=== PATIENT | male | born 1960 | race Caucasian/White ===

== ENCOUNTER 2024-10-05 11:51 | Outpatient (CLI) | payer MEDICARE, SELFPAY ==
--- NOTE | ~2024-10-05 | PE_ITS ---
EXAMINATION: PET skull to mid thigh DATE: 10/05/2024 14:27 INDICATION: Multiple pulmonary nodules TECHNIQUE: Blood glucose level was 92 mg/dL. 10.628 mCi of 18-fluorodeoxyglucose (18-FDG) was adminis tered i.v. Low dose computed tomography (CT) images were acquired from the base of the brain to the p roximal thighs for attenuation correction and anatomic localization. Positron emission tomography (PE T) images were acquired in the same distribution beginning 61 minutes after injection. Images includi ng fused PET/CT images were reconstructed in axial, coronal, and sagittal planes. Automated exposure control technique was employed. The dose-length product was 486.61mGy-cm. COMPARISON: None FINDINGS: Head/neck: There is symmetric increased activity in the oral cavity, palatine tonsils, laryngeal muscles and ocu lar muscles without CT correlate, likely physiologic. No pathologically enlarged cervical lymphadenop athy or suspicious foci of increased FDG uptake in the visualized head or neck. Chest: Mild emphysema with biapical pleural-parenchymal scarring, right greater than left. FDG avid thick-wa lled cavitary lung disease in the right upper lobe with maximal SUV of 10.3 associated with the large st contiguous regions soft tissue density which measures 5.9 x 2.9 cm. There are several smaller scat tered bilateral pulmonary nodules without cavitation and with mild FDG uptake. To the more prominent include an 8 x 7 mm nodule at the inferior posterior segment of the right upper lobe measuring 8 x 7 mm with maximal SUV of 5.8 and at the apical posterior segment of the left upper lobe measuring 1.4 x 0.7 cm with maximal SUV of 3.3. No pleural effusion. Heart size is normal. No pericardial effusion. Thoracic aorta is normal in caliber. There is diffuse mild likely excreted salivary activity along th e normal esophagus. No pathologically enlarged or FDG avid thoracic lymphadenopathy. Abdomen/pelvis/proximal thighs: Physiologic renal accumulation and excretion of FDG activity in the kidneys, bladder and along portio ns of ureters. Normal degree and heterogenous pattern of increased uptake throughout the liver withou t radiologic correlate or dominant FDG avid lesion. The gallbladder, pancreas, spleen and bilateral a drenal glands are normal. Mild uptake scattered throughout the bowels without radiologic correlate, a lso likely physiologic. Small fat-containing left inguinal hernia. No other abnormal foci of increase d FDG uptake or pathologically enlarged lymphadenopathy in the abdomen, pelvis or proximal thighs. Musculoskeletal: Mild lumbar levocurvature with severe spondylosis. Mild increased uptake at the superolateral margin of the right acetabulum along the origin of the reflected head of the right rectus femoris muscle wit hout radiologic correlate and which is likely enthesopathic. No suspicious lytic, blastic or abnormal ly FDG avid bone lesions. IMPRESSION: 1. Increased FDG uptake associated with multiple scattered bilateral pulmonary nodules as well as ass ociated with a larger thick-walled cavitary lesion in the right upper lung zone which could be either malignant or infectious in etiology. Recommend correlation with any prior outside imaging to assess for interval stability versus growth. Depending on level of clinical suspicion could consider either continued 3 month follow-up low-dose noncontrast chest CT or percutaneous biopsy. Reviewed, dictated and finalized at location A. IMPRESSION: 1. Increased FDG uptake associated with multiple scattered bilateral pulmonary nodules as well as associated with a larger thick-walled cavitary lesion in the right upper lung zone which could be either malignant or infectious in etiolog y. Recommend correlation with any prior outside imaging to assess for interval stability versus growth. Depending on level of clinical suspicion could conside r either continued 3 month follow-up low-dose noncontrast chest CT or percutane ous biopsy.
--- OUTSIDE RECORDS SUMMARY | 2024-10-05 12:02 | XMS_ITS | Patient Health Record ---
Author Organization [facility] Address [address] [place] [address] Care Team Providers Care Public Health Nutritionist Name Role Phone Edy Ramirez Primary Care Provider Allergies No Known Allergies Results Component Value Reference Range Notes Low Dose CT: Lung Cancer Scr eening Reviewed date:09/17/2024 08:40:32 AM Interpretation: Performing Lab: Notes/Report: Ultrasound: Screening for ab dominal aortic aneurysm Reviewed date:09/17/2024 08:39:46 AM Interpretation: Performing Lab: Notes/Report: Rapid Plasma Reagin (RPR) Te st With Reflex to Quantitative RPR and Confirmatory Treponema pallidum Antibodies Reviewed date:08/16/2024 01:56:31 PM Interpretation: Performing Lab:[facility], [address] [facility], Phone - [phone], Director - [facility] Notes/Report: RPR Non Reactive Non Reactive QuantiFERON-TB Gold Plus ([id number]) Reviewed date:08/16/2024 01:56:22 PM Interpretation: Performing Lab:[facility], [address] [facility], Phone - [phone], Director - [facility] Notes/Report: QuantiFERON Incubation Incubation performed. QuantiFERON-TB Gold Plus Negative Negative No response to M tuberculosis antigens detected. Infection with M tuberculosis is unlikely, but high risk individuals should be considered for additional testing (ATS/IDSA/CDC Clinical Practice Guidelines, 2017). The reference range is an Antigen minus Nil result of <0.35 IU/mL. Chemiluminescence immunoassay methodology QuantiFERON Criteria QuantiFERON-TB Gold Plus is a qualitative indirect test for M tuberculosis infection (including disease) and is intended for use in conjunction with risk assessment, radiography, and other medical and diagnostic evaluations. The QuantiFERON-TB Gold Plus result is determined by subtracting the Nil value from either TB antigen (Ag) value. The Mitogen tube serves as a control for the test. QuantiFERON TB1 Ag Value 0.10 QuantiFERON TB2 Ag Value 0.09 QuantiFERON Nil Value 0.09 QuantiFERON Mitogen Value >10.00 Hepatitis C Virus Antibody w /Rflx to Quantitative Real-time PCR ([id number]) Reviewed date:08/16/2024 01:55:53 PM Interpretation: Performing Lab:[address], Phone - [phone], Director - [facility] Notes/Report: HCV Ab Non Reactive Non Reactive Interpretation: Not infected with HCV unless early or acute infection is suspected (which may be delayed in an immunocompromised individual), or other evidence exists to indicate HCV infection. TSH Rfx on Abnormal to Free T4 Reviewed date:08/16/2024 01:56:13 PM Interpretation: Performing Lab:[address], Phone - [phone], Director - [facility] Notes/Report: TSH 1.120 0.450-4.500 uIU/mL CMP 14 Comprehensive Metabol ic Panel* Reviewed date:08/16/2024 01:56:03 PM Interpretation: Performing Lab:[address], Phone - [phone], Director - [facility] Notes/Report: Glucose 99 70-99 mg/dL BUN 5 8-27 mg/dL Creatinine 0.69 0.76-1.27 mg/dL eGFR 105 >59 mL/min/1.73 BUN/Creatinine Ratio 7 10-24 Sodium 132 134-144 mmol/L Potassium 4.9 3.5-5.2 mmol/L Chloride 89 96-106 mmol/L Carbon Dioxide, Total 25 20-29 mmol/L Calcium 9.9 8.6-10.2 mg/dL Protein, Total 7.6 6.0-8.5 g/dL Albumin 4.4 3.9-4.9 g/dL Globulin, Total 3.2 1.5-4.5 g/dL Bilirubin, Total 0.4 0.0-1.2 mg/dL Alkaline Phosphatase 114 44-121 IU/L AST (SGOT) 29 0-40 IU/L ALT (SGPT) 13 0-44 IU/L Hepatitis B Surface Antigen (HBsAg Screen) Reviewed date:08/16/2024 01:55:44 PM Interpretation: Performing Lab:[facility], [address] [place] [address], Phone - [phone], [facility] Notes/Report: HBsAg Screen Negative Negative CBC With Differential/Platel et* Reviewed date:08/16/2024 01:55:36 PM Interpretation: Performing Lab:[facility], [address] [place] [address], Phone - [phone], [facility] Notes/Report: WBC 9.0 3.4-10.8 x10E3/uL RBC 5.69 4.14-5.80 x10E6/uL Hemoglobin 17.2 13.0-17.7 g/dL Hematocrit 51.3 37.5-51.0 % MCV 90 79-97 fL MCH 30.2 26.6-33.0 pg MCHC 33.5 31.5-35.7 g/dL RDW 13.8 11.6-15.4 % Platelets 292 150-450 x10E3/uL Neutrophils 59 Not Estab. % Lymphs 27 Not Estab. % Monocytes 11 Not Estab. % Eos 2 Not Estab. % Basos 1 Not Estab. % Neutrophils (Absolute) 5.2 1.4-7.0 x10E3/uL Lymphs (Absolute) 2.4 0.7-3.1 x10E3/uL Monocytes(Absolute) 1.0 0.1-0.9 x10E3/uL Eos (Absolute) 0.2 0.0-0.4 x10E3/uL Baso (Absolute) 0.1 0.0-0.2 x10E3/uL Immature Granulocytes 0 Not Estab. % Immature Grans (Abs) 0.0 0.0-0.1 x10E3/uL Vitamin B12 and Folate Reviewed date:08/16/2024 01:55:25 PM Interpretation: Performing Lab:[facility], [address] [facility], Phone - [phone], Director - [facility] Notes/Report: Vitamin B12 227 777-5860 pg/mL Folate (Folic Acid), Serum 3.6 >3.0 ng/mL A serum folate concentration of less than 3.1 ng/mL is considered to represent clinical deficiency. HIV Screen *HIV 1, 2 Ab, p24 Ag ([id number]) Reviewed date:08/16/2024 01:55:16 PM Interpretation: Performing Lab:[address], Phone - [phone], Director - [facility] Notes/Report: HIV Ab/p24 Ag Screen Non Reactive Non Reactive HIV-1/HIV-2 antibodies and HIV-1 p24 antigen were NOT detected. There is no laboratory evidence of HIV infection. HIV Negative 12 Panel Urine Drug Screen Reviewed date:08/12/2024 10:03:30 AM Interpretation: Performing Lab: Notes/Report: THC neg NAYLA neg MOP (OPI) neg AMP neg MET neg BAR neg BZO negg MDMA neg MTD neg OXY neg PCP neg BUP neg Occult Blood, Fecal, IA (182 801) Reviewed date:09/23/2024 04:34:18 PM Interpretation: Performing Lab:[address], Phone - [phone], Director - [facility] Notes/Report: Occult Blood, Fecal, IA Negative Negative QuantiFERON-TB Gold Plus (18 0187) Reviewed date:09/23/2024 04:34:08 PM Interpretation: Performing Lab:[address], Phone - [phone], Director - [facility] Notes/Report: QuantiFERON Incubation Incubation performed. QuantiFERON-TB Gold Plus Negative Negative No response to M tuberculosis antigens detected. Infection with M tuberculosis is unlikely, but high risk individuals should be considered for additional testing (ATS/IDSA/CDC Clinical Practice Guidelines, 2017). The reference range is an Antigen minus Nil result of <0.35 IU/mL. Chemiluminescence immunoassay methodology QuantiFERON Criteria QuantiFERON-TB Gold Plus is a qualitative indirect test for M tuberculosis infection (including disease) and is intended for use in conjunction with risk assessment, radiography, and other medical and diagnostic evaluations. The QuantiFERON-TB Gold Plus result is determined by subtracting the Nil value from either TB antigen (Ag) value. The Mitogen tube serves as a control for the test. QuantiFERON TB1 Ag Value 0.12 QuantiFERON TB2 Ag Value 0.18 QuantiFERON Nil Value 0.08 QuantiFERON Mitogen Value >10.00 Reason For Referral Reason fractured, infected tooth below gums in right lower jaw Diagnosis 1 Dental infection (K0 4.7) Referral Organization [facility] Referring Provider First Name Edy Referring Provider Last Name Ashley Referring Provider Speciality Internal M edicine Referred Provider Specialty Oral Surgery General Notes Denise Peguero J 0 08/13/2024 03:22:36 PM >Referral to Oral Surgery. Letter sent. Clinical Notes [facility], Oral & Maxillofacial Surgery, [address] [facility], Service Building, [address], [place] [address], , Referral Priority Urgent Medications Medication SIG (Take, Route, Frequency, Duration) Notes Start Date End Date Status Amoxicillin-Pot Clavulanate 875-125 MG 1 tablet Orally every 12 hrs for 7 days 09/02/2024 Active Umeclidinium-Vilanterol 62.5-25 MCG/ACT 1 puff Inhalation Once a day for 30 days 08/12/2024 Active Mirtazapine 15 MG 1 tablet at bedtime Orally Once a day for 30 day(s) 09/09/2024 Active Social History Tobacco Use: Social History Observation Description Date Details (start date - stop date) Current Smoker NA - NA Sex Assigned At : Social History Observation Description Sex Assigned At Male Tobacco Control (Standard) Question Answer Notes Tobacco use: Current smoker Additional Findings: Tobacco user Heavy cigarett e smoker (20-39 cigs/day) Problems Problem Type SNOMED Code ICD Code Onset Dates Problem Status W/U Status Risk Notes Problem Tobacco user (818670645) Nicotine dependence, unspecified, uncomplicated (F17.200) Active confirmed Problem Insomnia (593155420) Insomnia (G47.00) Active confirmed Problem COPD - Chronic obstructive pulmonary disease (84230627) COPD (chronic obstructive pulmonary disease) (J44.9) Active confirmed Problem Deficiency of macronutrients (disorder) (636361152) Protein-calorie malnutrition, unspecified severity (E46) Active confirmed Vital Signs Heart Rate 88 /min 09/09/2024 Respiratory Rate 16 /min 09/09/2024 Blood pressure diastolic 64 mm Hg 09/09/2024 Oximetry 93 % 09/09/2024 Height 70 in in 09/09/2024 Blood pressure systolic 110 mm Hg 09/09/2024 Weight 110.4 lbs lbs 09/09/2024 BMI 15.84 kg/m2 09/09/2024 Encounters Encounter Location Date Provider Diagnosis [address] [address] 09/09/2024 Edy Ramirez [address] [address] 08/12/2024 Edy Ramirez Dental infection K04 .7 ; COPD (chronic obstructive pulmonary disease) J44.9 ; Protein-calorie malnutrition, unspecified severity E46 ; BMI less than 19,adult Z68.1 ; Nutritional counseling Z71.3 ; Exposure to potential infection Z20.9 ; Fatigue R53.83 ; Opioid use F11.90 ; Colon cancer screening Z12.11 ; Screening for lung cancer Z12.2 ; Screening for AAA (abdominal aortic aneurysm) Z13.6 ; Elevated blood pressure (not hypertension) R03.0 and Nicotine dependence, unspecified, uncomplicated F17.[address] [address] 08/12/2024 Edy Ramirez Exposure to potentia l infection Z20.9 ; Colon cancer screening Z12.11 ; Fatigue R53.83 ; Dental infection K04.7 and Protein-calorie malnutrition, unspecified severity E46 [address] [address] 08/26/2024 Edy Ramirez COPD (chronic obstructive pulmonary disease) J44.9 ; Protein-calorie malnutrition, unspecified severity E46 ; Dental infection K04.7 and Colon cancer screening Z12.[address] [address] 09/09/2024 Edy Ramirez Pulmonary nodules/lesions, multiple R91.8 ; Dental infection K04.7 and Insomnia G47.00 [facility] [address] [place] [address] 09/14/2024 Edy Ramirez [facility] [address] [place] [address] 09/17/2024 Edy Ramirez [address] [place] [address] 09/17/2024 Edy Ramirez [facility] [address] [place] [address] 09/20/2024 Edy Ramirez [facility] [place] [address] 09/21/2024 Edy Ramirez [address] [facility] [place] [address] 10/01/2024 Edy Ramirez Assessments Encounter Date Diagnosis (ICD Code) Assessment Notes Treatment Notes Treatment Clinical Notes Section Notes 08/26/2024 COPD (chronic obstructive pulmonary disease) (ICD-10 - J44.9) 09/09/2024 Pulmonary nodules/lesions, multiple (ICD-10 - R91.8) 09/09/2024 Dental infection (ICD-10 - K04.7) 08/26/2024 Protein-calorie malnutrition, unspecified severity (ICD-10 - E46) 08/12/2024 COPD (chronic obstructive pulmonary disease) (ICD-10 - J44.9) 08/12/2024 Dental infection (ICD-10 - K04.7) 08/12/2024 Exposure to potential infection (ICD-10 - Z20.9) 08/12/2024 Colon cancer screening (ICD-10 - Z12.11) 08/12/2024 Protein-calorie malnutrition, unspecified severity (ICD-10 - E46) 09/09/2024 Insomnia (ICD-10 - G47.00) 08/26/2024 Dental infection (ICD-10 - K04.7) 08/26/2024 Colon cancer screening (ICD-10 - Z12.11) 08/12/2024 BMI less than 19,adult (ICD-10 - Z68.1) 08/12/2024 Fatigue (ICD-10 - R53.83) 08/12/2024 Dental infection (ICD-10 - K04.7) 08/12/2024 Nutritional counseling (ICD-10 - Z71.3) 08/12/2024 Protein-calorie malnutrition, unspecified severity (ICD-10 - E46) 08/12/2024 Exposure to potential infection (ICD-10 - Z20.9) 08/12/2024 Fatigue (ICD-10 - R53.83) 08/12/2024 Opioid use (ICD-10 - F11.90) HOME URINE FENTANYL TEST FAINTLY POSITIVE. 08/12/2024 Colon cancer screening (ICD-10 - Z12.11) 08/12/2024 Screening for lung cancer (ICD-10 - Z12.2) 08/12/2024 Screening for AAA (abdominal aortic aneurysm) (ICD-10 - Z13.6) 08/12/2024 Elevated blood pressure (not hypertension) (ICD-10 - R03.0) MONITOR ONCE PAIN IS RELIEVED 08/12/2024 Nicotine dependence, unspecified, uncomplicated (ICD-10 - F17.200) 08/12/2024 Other Learning About the Safe Use of Antibiotics material was discussed. Pt was educated on use of antibiotic medication including dosing, side effects, adverse effects and anticipated response. Pt was also educated on importance of completing full course of treatment as ordered. Patient voiced understanding of all. Learning About the Safe Use of Antibiotics material was discussed. Pt was educated on use of antibiotic medication including dosing, side effects, adverse effects and anticipated response. Pt was also educated on importance of completing full course of treatment as ordered. Patient voiced understanding of all. [place] ENTRIES 08/26/2024 Other Learning About the Safe Use of Antibiotics material was discussed. Pt was educated on use of antibiotic medication including dosing, side effects, adverse effects and anticipated response. Pt was also educated on importance of completing full course of treatment as ordered. Patient voiced understanding of all. 09/09/2024 Other Learning About the Safe Use of Antibiotics material was discussed. Pt was educated on use of antibiotic medication including dosing, side effects, adverse effects and anticipated response. Pt was also educated on importance of completing full course of treatment as ordered. Patient voiced understanding of all. Plan Of Treatment Future Test Test Name Order Date PET/CT Head to Mid-Thigh 09/09/2024 Next Appt Details Provider Name:Edy Ramirez , 10/19/2024 09:40:00 AM, [address] [facility] , [place], [address], Insurance Providers Payer Name Payer Address Payer Phone Subscriber Number Group Number Insured Name Patient Relationship to Insured Coverage Start Date Coverage End Date [facility] [address] [address] [place] [address] [id number] Callum Bah Self - patient is the insured 5
--- OUTSIDE RECORDS SUMMARY | 2024-10-05 12:02 | XMS_ITS | Clinical Summary ---
Author Organization [facility] [address] [facility] Address [address] [place] [address] Care Team Providers Care Community Arts Centre Manager Name Role Phone Nathan, Ira Neri NP Primary Care Provider [phone] Allergies No known active allergies Medications naproxen (NAPROSYN,ALEVE ) 500 mg tablet take 1 tablet by oral route 2 times every day with food 0 0 5 Active Additional Information Patient not taking.Reported on 02/08/2020 aclidinium (TUDORZA PRESSAIR) 400 mcg/actuation inhaler inhale 1 puff by inhalation route every day 0 Inhaler 0 5 Active Additional Information Patient not taking.Reported on 02/08/2020 albuterol HFA (VENTOLIN HFA) 90 mcg/actuation inhaler inhale 2 puff by inhalation route every 4 - 6 hours as needed 0 Inhaler 0 5 Active Additional Information Patient not taking.Reported on 02/08/2020 ciprofloxacin-d examethasone (CIPRODEX) otic suspension instill 4 drop by otic route 2 times every day for 7 days into affected ear(s) 0 0 5 Active Additional Information Patient not taking.Reported on 02/08/2020 Advair Diskus 250-50 mcg/dose diskus inhaler INL 1 PUFF PO BID 0 Active mirtazapine (REMERON) 45 mg tablet TK 1 T PO QD 0 Active latanoprost (XALATAN) 0.005 % ophthalmic solution Administer 1 drop into both eyes nightly 2.5 mL 11 0 Active Active Problems Problem Noted Date Diagnosed Date Corneal dystrophy 02/08/2020 Primary open angle glaucoma of both eyes 020 Pain in wrist 04/03/2015 Overview (08/30/2016): Wrist pain Chronic obstructive pulmonary disease 04/03/2015 Overview (08/30/2016): COPD Current smoker 04/03/2015 Overview (08/30/2016): Current smoker Medical History Medical History Date Comments Hx Other Medical Fractured left wrist 02-17-15.; Comments: [facility] 04/25/2015 - COPD (chronic obstructive pu lmonary disease) ([facility]) Glaucoma Social History Tobacco Use Types Packs/Day Years Used Date Smoking Tobacco: Every Day Smokeless Tobacco: Never Sex and Gender Information Value Date Recorded Sex Assigned at Not on file Legal Sex Male 10:49 AM ANESTHESIOLOGIST ASSISTANT Gender Identity Not on file Sexual Orientation Not on file Obstetrics History Last Filed Vital Signs Vital Sign Reading Time Taken Comments Blood Pressure 120/90 06/19/2015 1:58 PM ANESTHESIOLOGIST ASSISTANT Pulse 130 06/19/2015 1:58 PM ANESTHESIOLOGIST ASSISTANT Temperature - - Respiratory Rate - - Oxygen Saturation - - Inhaled Oxygen Concentration - - Weight 56.2 kg (124 lb) 06/19/2015 1:58 PM ANESTHESIOLOGIST ASSISTANT Height 180.3 cm (5' 11 ) 06/19/2015 1:58 PM ANESTHESIOLOGIST ASSISTANT Body Mass Index 17.29 06/19/2015 1:58 PM ANESTHESIOLOGIST ASSISTANT Plan of Treatment Not on file Insurance [employer]ARE [id number] [employer] HMO Care Teams Community Arts Centre Manager Relationship Specialty Start Date End Date Ira Evans NP [address] [place] [address] PCP - General Nurse Practitioner 12/23/19
--- OUTSIDE RECORDS SUMMARY | 2024-10-05 12:02 | XMS_ITS | Clinical Summary ---
Author Organization [facility] Address [address] [place] [address] Care Team Providers Care Operation Research Analyst Name Role Phone Antwon Bond MD Primary Care Provider [phone] Source Comments [facility],non-owned Affiliates and Associated Physician Practices is amultiple site organization consisting of ambulatory clinics and hospital sitesin [place], [place], [place] and [place]. This disclosure is being madepursuant to the Care Everywhere program and may not contain all information available regarding this patient. Last updated 18.[facility] Active Problems Problem Noted Date Diagnosed Date Chronic obstructive pulmonary disease 12/09/2014 Family History Medical History Relation Name Comments CVA Father Status: d None Known Mother Status: d Relation Name Status Comments Father Mother Social History Tobacco Use Types Packs/Day Years Used Date Smoking Tobacco: Every Day Cigarettes Alcohol Use Standard Drinks/Week Comments Yes 6.7 (1 standard drink = 0.6 oz p ure alcohol) Sex and Gender Information Value Date Recorded Sex Assigned at Not on file Legal Sex Male 6:08 PM TILESETTER Gender Identity Not on file Sexual Orientation Not on file Last Filed Vital Signs Vital Sign Reading Time Taken Comments Blood Pressure 112/87 12/09/2014 1:15 PM CDT Pulse 80 12/09/2014 1:15 PM CDT Temperature 36.6 C (97.9 F) 12/09/2014 12:49 PM CDT Respiratory Rate 16 12/09/2014 1:15 PM CDT Oxygen Saturation 96% 12/09/2014 1:15 PM CDT Inhaled Oxygen Concentration - - Weight 58.1 kg (128 lb) 12/09/2014 11:04 AM CDT Height 176.5 cm (5' 9.5 ) 12/09/2014 11:04 AM CD T Body Mass Index 18.63 12/09/2014 11:04 AM CDT Plan of Treatment Health Maintenance Due Date Last Done Comments COLOGUARD (AGES 45-75) - COL ON CA SCREENING 1962 COLON MONITORING 1962 COLONOSCOPY - COLON CA SCREENING 1962 CT COLONOGRAPHY - COLON CA SCREENING 1962 Colorectal Cancer Screening 1962 FIT - COLON CA SCREENING 1962 FLEX SIG - COLON CA SCREENING 1962 LIPID TESTING 1962 HIV SCREENING 1977 HEPATITIS C SCREENING 09/24/1980 DTAP/TDAP/TD VACCINES (1 - Tdap) 1981 PNEUMOCOCCAL VACCINE 50+ (1 of 1 - PCV) 2012 ZOSTER VACCINE (1 of 2) 2012 COVID-19 VACCINE ( - 2023-2 5 season) 2024 DEPRESSION SCREENING 05/26/2024 INFLUENZA VACCINE (Season Ended) 2025 Respiratory Syncytial Virus (RSV) Vaccine Pt: or over 60 yrs (1 - 1-dose 75+ series) 2037 HEPATITIS B VACCINE Aged Out No longe r eligible based on patient's age to complete this topic HIB VACCINE Aged Out No longer eligi ble based on patient's age to complete this topic HPV VACCINE Aged Out No longer eligi ble based on patient's age to complete this topic MENINGOCOCCAL (Group B) VACC INE SHARED DECISION-MAKING Aged Out No longer eligibl e based on patient's age to complete this topic MENINGOCOCCAL GROUPS A/C/Y/W VACCINE Aged Out No longer eligible b ased on patient's age to complete this topic Insurance MEDICARE MEDICAID - OUT OF STATE Care Teams Operation Research Analyst Relationship Specialty Start Date End Date Antwon Bond MD [address] [place] [address] PCP - General 09/15/14
--- OUTSIDE RECORDS SUMMARY | 2024-10-05 12:02 | XMS_ITS | Patient Health Record ---
Author Organization [facility] Address [address] [facility] [address] [place], [place] [address] Care Team Providers Care Cambering Machine Operator Name Role Phone Edy Jeffries Primary Care Provider rOion Morales [phone] Reason For Referral No Information Plan Of Treatment No Information Insurance Providers Payer Name Payer Address Payer Phone Subscriber Number Group Number Insured Name Patient Relationship to Insured Coverage Start Date Coverage End Date [facility] [address] [place] [address] [id number] Callum Bah Self - patient is the insured
--- OUTSIDE RECORDS SUMMARY | 2024-10-05 12:02 | XMS_ITS | Referral Summary ---
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 Gender Identity Not on file Sexual Orientation Not on file Last Filed Vital Signs Vital Sign Reading Time Taken Comments Blood Pressure 120/90 06/19/2015 1:58 PM CENTRIFUGAL STATION OPERATOR Pulse 130 06/19/2015 1:58 PM CENTRIFUGAL STATION OPERATOR Temperature - - Respiratory Rate - - Oxygen Saturation - - Inhaled Oxygen Concentration - - Weight 56.2 kg (124 lb) 06/19/2015 1:58 PM CENTRIFUGAL STATION OPERATOR Height 180.3 cm (5' 11 ) 06/19/2015 1:58 PM CENTRIFUGAL STATION OPERATOR Body Mass Index 17.29 06/19/2015 1:58 PM CENTRIFUGAL STATION OPERATOR Plan of Treatment Not on file Insurance [employer] [id number] [place] [address] Care Teams Pulpit Operator Relationship Specialty Start Date End Date Evans, Ira Neri NP [address] [place] [address] PCP - General Nurse Practitioner 12/23/19
--- OUTSIDE RECORDS SUMMARY | 2024-10-05 12:02 | XMS_ITS | Clinical Summary ---
Author Organization [facility] Address [address] [place] [address] Phone Care Team Providers Care Home Builder Name Role Phone Nevaeh Moulton Primary Care Provider [phone] Allergies No known active allergies Medications ADVAIR DISKUS 250-50 MCG/DOSE AEROSOL POWDER, BREATH ACTIVATED INL 1 PUFF PO BID 3 12/04/2016 Active buPROPion (WELLBUTRIN) 150 MG XL tablet Take 150 mg by mouth every morning. Active ciprofloxacin (CILOXAN) 0.3 % SolutionIndicati ons:Chronic eczematous otitis externa of left ear 7 gtt BID 10 mL 12/12/2016 Active Vitamin B-1 (THIAMINE) 100 MG Tablet Take 1 Tab by mouth daily. 30 Tab 04/07/2019 Active folic acid (FOLVITE) 1 MG Tablet Take 1 Tab by mouth daily. 30 Tab 04/07/2019 Active predniSONE (DELTASONE) 20 MG Tablet Take 2 Tabs by mouth daily (with breakfast). 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 12/13/19 17 Impacted cerumen of right ear 12/12/2016 Chronic eczematous otitis externa of left ear Family History Medical History Relation Name Comments Stroke Mother Relation Name Status Comments Father Mother Social History Tobacco Use Types Packs/Day Years Used Date Smoking Tobacco: Every Day Cigarettes 1.5 43 Smokeless Tobacco: Never Tobacco Cessation:Ready to Q uit: Yes; Counseling Given: Yes Alcohol Use Standard Drinks/Week Comments Yes 0 (1 standard drink = 0.6 oz pur e alcohol) Sex and Gender Information Value Date Recorded Sex Assigned at Not on file Legal Sex Male 9:48 PM CDT Gender Identity Not on file Sexual Orientation Not on file Occupation Industry Job Start Date Job End Date unemployed Not on file Not on file Not on file Last Filed Vital Signs Vital Sign Reading Time Taken Comments Blood Pressure 110/54 04/06/2019 3:00 PM PIGMENT WEIGHER Pulse 82 04/06/2019 3:00 PM PIGMENT WEIGHER Temperature 36.8 C (98.2 F) 04/06/2019 3:00 PM PIGMENT WEIGHER Respiratory Rate 18 04/06/2019 3:00 PM PIGMENT WEIGHER Oxygen Saturation 90% 04/06/2019 7:33 AM PIGMENT WEIGHER Inhaled Oxygen Concentration - - Weight 58.5 kg (129 lb) 04/05/2019 11:00 AM PIGMENT WEIGHER bed scale Height 180.3 cm (5' 11 ) 04/04/2019 3:41 PM PIGMENT WEIGHER Body Mass Index 17.99 04/04/2019 3:41 PM PIGMENT WEIGHER Plan of Treatment Health Maintenance Due Date Last Done Comments Colonoscopy 09/30/2007 Colorectal Cancer Screening 09/30/2007 Cologuard 2012 Immunochemical Fecal Occult Blood 2012 Zoster Immunization (1 of 2) 2012 Pneumococcal Immunization (5 0+ years) (2 of 2 - PCV) 09/08/2014 09/08/2013 Respiratory Syncytial Virus (RSV) Immunization (Adult) (1 - Risk 60-74 years 1-dose series) 2022 Influenza Immunization (#1) 2024 09/2 12/2016, 06/03/2016, 04/11/2015 SARS-COV-2 Immunization ( season) 2024 08/30/2021, 09/26/2020, 08/29/2020 Pneumococcal Immunization Combined Discontinued 09/08/2013 DTaP/Tdap/Td Immunization Discontinued 04/01/2017 TdaP Immunization Completed 04/01/2017 Hepatitis C Virus (HCV) Screening Completed 04/05/2019 Hepatitis B Immunization Aged Out No longer eligible based on patient's age to complete this topic Meningococcal Immunization (ACWY) Aged Out No longer eligible based on patient's age to complete this topic Rotavirus Immunization Aged Out No lo nger eligible based on patient's age to complete this topic Procedures Procedure Name Priority Date/Time Associated Diagnosis Comments HEPATITIS PANEL ACUTE (AHP) STAT 04/05/2019 8:58 AM PIGMENT WEIGHER from Last 3 Months or Most Recently Relevant to Health Maintenance Results * Hepatitis Panel Acute (AHP) (04/05/2019 8:58 AM PIGMENT WEIGHER) HEPATITIS A IGM ANTIBODY NON DETECTED NON DETECTED 04/05/2019 3:14 PM PIGMENT WEIGHER [facility] Comment: IGM Antibodies to HAV not detected. Does not exclude early acute or recovered HAV infection. HEP B CORE AB (IGM) NON DETECTED NON DETECTED 04/05/2019 3:14 PM PIGMENT WEIGHER [facility] Comment:IGM anti-HBC not det ected. Does not exclude the possibility of exposure to or infection with HBV. HEPATITIS B SURFACE ANTIGEN NON DETECTED NON DETECTED 04/05/2019 3:14 PM PIGMENT WEIGHER [facility] Comment:A nonreactive test r esult does not exclude the possibility of exposure to or infection with Hepatitis B virus. A nonreactive test result in individuals with prior exposure to hepatitis B may be due to antigen levels below the detection limit of this assay or lack of antigen reactivity to the antibodies in this assay. hepatitis C antibody 0.12 <1 S/CO 04/05/2019 3:14 PM PIGMENT WEIGHER [facility] Comment: Signal/Cutoff ratio < 0.79 is Nondetected Signal/Cutoff ratio 0.80-0.99 is Grayzone Signal/Cutoff ratio > 0.99 is Detected Supplemental assays are recommended if signal/cutoff ratio is >/=1.00. Signal/cutoff ratio result >/= 5.00 is 97% predictive of positivity for recombinant immunoblot assay (RIBA) and will be reported to the [place] Department of Public [facility] as required. Blood specimen (specimen) Venipuncture / Unknown 04/05/2019 8:58 AM PIGMENT WEIGHER 04/05/2019 9:00 AM PIGMENT WEIGHER us Jose Diaz MD HEMATOLOGY ORDERABLES Fin al Result [facility] [address] [place] [address], [place] from Last 3 Months or Most Recently Relevant to Health Maintenance Insurance MEDICARE Advance Directives * Full Code (Latest Code Status on File) Date Activated Date Inactivated Comments 04/04/2019 7:49 PM 04/06/2019 5:57 PM CPR-Full T reatment: FULL ARREST: Attempt Resuscitation/CPR wit intubation and mechanical ventilation. PRE-ARREST: Use entire range of life support measures to stabilize the patient. Care Teams Home Builder Relationship Specialty Start Date End Date Nevaeh Moulton PA [address] [address] PCP - General Adult Medicine 12/12/16
[2024-10-05 12:25] LABS: Glucose Point of Care 92 mg/dl (65-105)
== END 2024-10-05 11:52 | disposition home or self-care (01) ==
LOC: ANHIMG 11:58
PROVIDERS: Visit Provider Internal Medicine
DX: R91.8 Other nonspecific abnormal finding of lung field (principal)
CPT/HCPCS: 78815; A9552

== ENCOUNTER 2024-11-04 08:38 | Outpatient (CLI) | payer MEDICARE, SELFPAY ==
--- NOTE | 2024-10-25 16:05 | PC.NURSE ---
Pre Radiology instructions Report to the outpatient tom smith on date __11/04/24___ at time __0900am for procedure Time: 1100 am____ YOU MAY BE MONITORED AT HOSPITAL FOR UP TO 4 HOURS AFTER YOUR PROCEDURE. A visitor will be allowed to accompany the patient into the hospital. You and your visitor will be asked to self-screen and do not enter if you have any COVID symptoms. A mask is OPTIONAL within the hospital. Patients are to have no food or drink 6 hours prior to procedure time Driving will be restricted after the procedure, you must have a person to drive you home. Labs will be drawn in preop area and once reviewed, you will be taken to radiology area for procedure. When the procedure is completed, you will be taken to outpatient where you will be monitored for several hours. You may have one visitor in this area. Other than holding anti-coagulants, patient may take other medication(s) as scheduled. Prior to your appointment date patients are instructed to hold anti-coagulants after discussing with ordering provider to stop. If unable to discontinue anti-coagulants please notify radiologist. ? No aspirin or warfarin (Coumadin) for 7 days prior to the procedure. ? No clopidogrel (Plavix), ticagrelor (Brilinta), prasugrel (Effient) or dabigatran (Pradaxa) for 5 days prior to the procedure. ? No rivaroxaban (Xarelto), apixaban (Eliquis), dipyridamole (Aggrenox or Persantine) or cilostazol (Pletal) for 2 days prior to the procedure. Medications to discontinue per physician: NSAIDS/ASA productss 7 Days prior ___ Date to take last dose: ___10/26/24 Please leave all valuables, including medications, at home the day of procedure. The hospital will not accept responsibility for valuables. Wear comfortable, loose fitting clothing.? Follow any additional instructions given to you from ordering provider. Telephone instructions given to ___Patient and asked if any additional questions and then verbalized understanding. Patient advised to call scheduling provider office or registration scheduling [phone] if any additional questions.
[2024-10-25 16:08] VITALS: BMI 15.7
[2024-11-04] VITALS (11 sets, daily range): BP systolic 101–136; BP diastolic 55–81; PULSE 79–98; RESP 16–20; TEMP 36.9; O2SAT 94–100; BMI 15.8
--- NOTE | 2024-11-04 | S_PTH ---
PATIENT: Callum Bah LOC: [facility] U#:[id number] AGE/SX: 64/M ROOM: RE11/04/[address]: Orion Lew MD : 1960 BED: DIS: 11/04/2024 SPEC #: [id number] RECD: 11/04/24 11:56 STATUS: GABE REBrittani #: [id number] MARY: 11/04/24 00:[address]: Orion Lew DEPT: [facility] Surgical RECD BY: Kiara Casanova ENTERED: 11/04/24 11:56 SP TYPE: Surgical OTHR DR: Edy Ramirez MD Tissues: A - Lung Biopsy Procedures: Hall Keratin Unstained Slides [place] Met[place] Stain Hematoxylin and Eosin Stain Acid Fast Stain Gross and Microscopic Level 4
--- NOTE | ~2024-11-04 | XR_ITS ---
EXAMINATION: XR chest 1V portable DATE: 11/04/2024 14:56 INDICATION: Status post percutaneous right lung biopsy TECHNIQUE: frontal and lateral views of the chest were obtained. COMPARISON: Chest radiograph dated 11/04/2024 FINDINGS: Biapical pleural-parenchymal scarring. Hyperexpansion increased lucency of the lungs consistent with emphysema. Airspace opacity right upper lung zone corresponding to the biopsied thick-walled cavitary mass which could be infectious or malignant in etiology. Interval shadows project over the bilateral lower lung zones. No new airspace opacities, pulmonary edema, pleural effusion or pneumothorax. The cardiomediastinal silhouette is normal. IMPRESSION: 1. No pneumothorax or other acute cardiopulmonary disease post percutaneous biopsy of a right upper l obe thick-walled cavitary mass which could represent sequela of chronic infection or malignancy. Line 2. Emphysema. Reviewed, dictated and finalized at location A. IMPRESSION: 1. No pneumothorax or other acute cardiopulmonary disease post percutaneous bio psy of a right upper lobe thick-walled cavitary mass which could represent sequ bob of chronic infection or malignancy. Line 2. Emphysema.
--- NOTE | ~2024-11-04 | XR_ITS ---
XR chest 1V portable 11/04/2024 13:08 Indication: Post image guided lung biopsy Procedure: AP portable chest Comparison: 11/04/2024 Findings: Thick-walled cavitary lesion right [place] reidentified. Prominent right nipple shadow. No pne umothorax identified post procedure. No pleural effusion. Left lung clear. Impression: 1: No pneumothorax identified post procedure. No significant change. Reviewed, dictated and finalized at location B. Impression: 1: No pneumothorax identified post procedure. No significant change.
--- NOTE | ~2024-11-04 | CT_ITS ---
EXAMINATION: CT biopsy lung w/imaging DATE: 11/04/2024 11:44 INDICATION: Multiple FDG avid pulmonary nodules TECHNIQUE: The procedure including the risks and benefits was discussed with the patient. Risks discu ssed included infection, approximately 1/20 risk of symptomatic hemorrhage beyond mild hemoptysis, ap proximately 1/3 risk of pneumothorax, and approximately 1/10 risk of pneumothorax severe enough to wa rrant chest tube placement. The patient understood the risks and agreed to proceed. The patient was p laced prone. The skin overlying the posterior right chest was prepped and draped in sterile fashion. Anesthetic was administered with 1% lidocaine subcutaneously. A 19 gauge outer needle was advanced under CT guidance to the lesion of interest. A 20 gauge core biopsy needle was then used to obtain 5 core biopsy specimens. 5 mL of the patient's own blood was injected during withdrawal of the guide n eedle. The entry site was cleaned and dressed. There were no immediate complications. The dose-lengt h product was 142.11 mGy-cm. FINDINGS: CT images demonstrate the outer needle tip adjacent to the central solid and most FDG avid component of the thick-walled cavitary lesion in the right upper lobe. IMPRESSION: 1. Successful CT-guided biopsy of a thick-walled FDG avid cavitary lesion in the right upper lobe. Reviewed, dictated and finalized at location A. IMPRESSION: 1. Successful CT-guided biopsy of a thick-walled FDG avid cavitary lesion in th e right upper lobe.
--- NOTE | ~2024-11-04 | XR_ITS ---
EXAMINATION: XR chest 1V DATE: 11/04/2024 11:36 INDICATION: Tennis post lung biopsy TECHNIQUE: frontal view of the chest was obtained. COMPARISON: PET/CT dated 10/05/2024 FINDINGS: Apical pleural-parenchymal scarring. Additional airspace opacity in the right upper lung zone corresp onding to the biopsied thick-walled cavitary lung disease on prior PET/CT which could be infectious o r malignant in etiology. Symmetric nipple shadows project over the bilateral anterior ribs. No other airspace opacities, pulmonary edema, pleural effusion or pneumothorax. The cardiomediastinal silhouet te is normal. IMPRESSION: 1. No pneumothorax or pleural effusion post percutaneous biopsy of a thick-walled cavitary lesion in the right upper lobe which could be due to either chronic infection or malignancy. Reviewed, dictated and finalized at location A. IMPRESSION: 1. No pneumothorax or pleural effusion post percutaneous biopsy of a thick-wall ed cavitary lesion in the right upper lobe which could be due to either chronic infection or malignancy.
--- OUTSIDE RECORDS SUMMARY | 2024-11-04 08:52 | XMS_ITS | Clinical Summary ---
Author Organization [facility] Address [address] [address] Care Team Providers Care Tanning Salon Attendant Name Role Phone Antwon Bond MD Primary Care Provider [phone] Source Comments [facility],non-owned Affiliates and Associated Physician Practices is amultiple site organization consisting of ambulatory clinics and hospital sitesin [place], [place], [place] and [place]. This disclosure is being madepursuant to the Care Everywhere program and may not contain all information available regarding this patient. 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
--- OUTSIDE RECORDS SUMMARY | 2024-11-04 08:52 | XMS_ITS | Clinical Summary ---
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 Gender Identity Not on file Sexual Orientation Not on file Obstetrics History Last Filed Vital Signs Vital Sign Reading Time Taken Comments Blood Pressure 120/90 06/19/2015 1:58 PM CREDIT CONTROL ASSISTANT Pulse 130 06/19/2015 1:58 PM CREDIT CONTROL ASSISTANT Temperature - - Respiratory Rate - - Oxygen Saturation - - Inhaled Oxygen Concentration - - Weight 56.2 kg (124 lb) 06/19/2015 1:58 PM CREDIT CONTROL ASSISTANT Height 180.3 cm (5' 11) 06/19/2015 1:58 PM CREDIT CONTROL ASSISTANT Body Mass Index 17.29 06/19/2015 1:58 PM CREDIT CONTROL ASSISTANT Plan of Treatment Not on file Insurance [employer] [id number] [employer] HMO Care Teams Headlight Adjuster Relationship Specialty Start Date End Date Ira Evans NP [address] [place] [address] PCP - General Nurse Practitioner 12/23/19
--- OUTSIDE RECORDS SUMMARY | 2024-11-04 08:52 | XMS_ITS | Patient Health Record ---
Author Organization [facility] Address [address] [place] [address] Care Team Providers Care Cso Name Role Phone Edy Ramirez Primary Care Provider [phone] Allergies No Known Allergies Results Component Value Reference Range Notes Hepatitis C Virus Antibody w /Rflx to Quantitative Real-time PCR ([id number]) Reviewed date:08/16/2024 01:55:53 PM Interpretation: Performing Lab:[facility], Phone - [phone], Director - [facility] Notes/Report: HCV Ab Non Reactive Non Reactive Interpretation: Not infected with HCV unless early or acute infection is suspected (which may be delayed in an immunocompromised individual), or other evidence exists to indicate HCV infection. QuantiFERON-TB Gold Plus ([id number]) Reviewed date:08/16/2024 01:56:22 PM Interpretation: Performing Lab:[place], [facility] [email or web address], Phone - [phone], Director - [facility] Notes/Report: QuantiFERON Incubation Incubation performed. QuantiFERON-TB Gold [...] Nil Value 0.09 QuantiFERON Mitogen Value >10.00 Rapid Plasma Reagin (RPR) Te st With Reflex to Quantitative RPR and Confirmatory Treponema pallidum Antibodies Reviewed date:08/16/2024 01:56:31 PM Interpretation: Performing Lab:[email or web address] [address] [place], [place] [address]ox [facility], Phone - [phone], Director - [facility] Notes/Report: RPR Non Reactive Non Reactive Low Dose CT: Lung Cancer Scr eening Reviewed date:09/17/2024 08:40:32 AM Interpretation: Performing Lab: Notes/Report: Ultrasound: Screening for ab dominal aortic aneurysm Reviewed date:09/17/2024 08:39:46 AM Interpretation: Performing Lab: Notes/Report: Occult Blood, Fecal, IA ([id number]) Reviewed date:09/23/2024 04:34:18 PM Interpretation: Performing Lab:[facility] [address], Phone - [phone], Director - [facility] Notes/Report: Occult Blood, Fecal, IA Negative Negative 12 Panel Urine Drug Screen Reviewed date:08/12/2024 10:03:30 AM Interpretation: Performing Lab: Notes/Report: THC neg NAYLA neg MOP (OPI) neg AMP neg MET neg BAR neg BZO negg MDMA neg MTD neg OXY neg PCP neg BUP neg HIV Screen *HIV 1, 2 Ab, p24 Ag ([id number]) Reviewed date:08/16/2024 01:55:16 PM Interpretation: Performing Lab:[facility] [address] [facility], Phone - [phone], Director - [facility] Notes/Report: HIV Ab/p24 Ag Screen Non Reactive Non Reactive HIV-1/HIV-2 antibodies and HIV-1 p24 antigen were NOT detected. There is no laboratory evidence of HIV infection. HIV Negative Vitamin B12 and Folate Reviewed date:08/16/2024 01:55:25 PM Interpretation: Performing Lab:[email or web address] [address] [place], [place] [address]ox [facility], Phone - [phone], Director - [facility] Notes/Report: Vitamin B12 086 304-1735 pg/mL Folate (Folic Acid), Serum 3.6 >3.0 ng/mL A serum folate concentration of less than 3.1 ng/mL is considered to represent clinical deficiency. CBC With Differential/Platel et* Reviewed date:08/16/2024 01:55:36 PM Interpretation: Performing Lab:[facility], [address] [facility] Phone - [phone], [facility] Notes/Report: WBC 9.0 3.4-10.8 x10E3/uL RBC 5.69 [...] % Immature Grans (Abs) 0.0 0.0-0.1 x10E3/uL Hepatitis B Surface Antigen (HBsAg Screen) Reviewed date:08/16/2024 01:55:44 PM Interpretation: Performing Lab:[facility], [address] [facility] Phone - [phone], [facility] Notes/Report: HBsAg Screen Negative Negative CMP 14 Comprehensive Metabol ic Panel* Reviewed date:08/16/2024 01:56:03 PM Interpretation: Performing Lab:[facility], [address] [facility] Phone - [phone], [facility] Notes/Report: Glucose 99 70-99 mg/dL BUN 5 [...] 0-40 IU/L ALT (SGPT) 13 0-44 IU/L TSH Rfx on Abnormal to Free T4 Reviewed date:08/16/2024 01:56:13 PM Interpretation: Performing Lab:[facility] [address], Phone - [phone], Director - [facility] Notes/Report: TSH 1.120 0.450-4.500 uIU/mL QuantiFERON-TB Gold Plus ([id number]) Reviewed date:09/23/2024 04:34:08 PM Interpretation: Performing Lab:[facility] [place], [address] [place] [address], Phone - [phone], Director - [facility] Notes/Report: QuantiFERON Incubation Incubation performed. QuantiFERON-TB Gold [...] Nil Value 0.08 QuantiFERON Mitogen Value >10.00 PET/CT Head to Mid-Thigh Reviewed date:10/20/2024 09:20:51 AM Interpretation:Abnormal Performing Lab: Notes/Report: Abnormal Reason For Referral Reason fractured, infected tooth below gums in right lower jaw Diagnosis 1 Dental infection (K0 4.7) Referral Organization [facility] Referring Provider First Name Edy Referring Provider Last Name Ahsley Referring Provider Speciality Internal M edicine Referred Provider Specialty Oral Surgery General Notes Denise Peguero 0 08/13/2024 03:22:36 PM >Referral to Oral Surgery. Letter sent. Clinical Notes [facility] al, Oral & Maxillofacial Surgery, [address] [facility] [address], [address], [place] [address], , Referral Priority Urgent Medications Medication SIG (Take, Route, Frequency, Duration) Notes Start Date End Date Status Mirtazapine 15 MG 1 tablet at bedtime Orally Once a day for 30 days 09/09/2024 Active Ventolin HFA 108 (90 Base) MCG/ACT 2 puffs as needed for shortness of breath Inhalation every 4 hrs 10/19/2024 Active HYDROcodone-Acetaminophen 5-325 MG 1 tablet as needed Orally twice a day for 7 days severe knee pain 10/22/2024 Active Umeclidinium-Vilanterol 62.5-25 MCG/ACT 1 puff Inhalation Once a day for 30 days 08/12/2024 Active Social History Tobacco Use: Social History [...] W/U Status Risk Notes Problem Tobacco user (633903805) Nicotine dependence, unspecified, uncomplicated (F17.200) Active confirmed Problem Insomnia (141806405) Insomnia (G47.00) Active confirmed Problem COPD - Chronic obstructive pulmonary disease (41517500) COPD (chronic obstructive pulmonary disease) (J44.9) Active confirmed Problem Deficiency of macronutrients (disorder) (846738117) Protein-calorie malnutrition, unspecified severity (E46) Active confirmed Problem Internal derangement of left knee (52661917442029832 ) 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) Active confirmed Vital Signs Heart Rate 83 /min 10/19/2024 Respiratory Rate 16 /min 10/19/2024 Blood pressure diastolic 60 mm Hg 10/19/2024 Oximetry 92 % 10/19/2024 Height 70 in 10/19/2024 Blood pressure systolic 122 mm Hg 10/19/2024 Weight 111.6 lbs 10/19/2024 BMI 16.01 kg/m2 10/19/2024 Encounters Encounter Location Date Provider Diagnosis [address] [address] 09/09/2024 Edy Ramirez [address] [address] 08/12/2024 Edy Ramirez Dental infection K04 .7 [...] R03.0 and Nicotine dependence, unspecified, uncomplicated F17.[address] [address] 08/12/2024 Edy Ramirez Exposure to potentia l infection Z20.9 ; Colon cancer screening Z12.11 ; Fatigue R53.83 ; Dental infection K04.7 and Protein-calorie malnutrition, unspecified severity E46 [address] [address] 08/26/2024 Edy Ramirez COPD (chronic obstructive pulmonary disease) J44.9 ; Protein-calorie malnutrition, unspecified severity E46 ; Dental infection K04.7 and Colon cancer screening Z12.[address] [place] [address] 09/09/2024 Edy Ramirez Pulmonary nodules/lesions, multiple R91.8 ; Dental infection K04.7 and Insomnia G47.[address] [place] [address] 10/19/2024 Edy Ramirez Pulmonary nodules/lesions, multiple R91.8 ; Internal derangement of left knee M23.92 ; COPD (chronic obstructive pulmonary disease) J44.9 ; Protein-calorie malnutrition, unspecified severity E46 ; Nicotine dependence, unspecified, uncomplicated F17.200 and Insomnia G47.00 [facility] [address] [facility] [place] [address] 09/14/2024 Edy Ramirez [place] [address] [place] [address] 09/17/2024 Edy Ramirez [address] [place] [address] 09/17/2024 Edy Ramirez [address] [place] [address] [place] [address] 09/20/2024 Edy Ramirez [place] [facility] [place] [address] 09/21/2024 Edy Ramirez [address] [place] [address] 10/01/2024 Edy Ramirez [address] [place] [address] 10/22/2024 Edy Ramirez [address] [address] 10/25/2024 Edy Ramirez Assessments Encounter Date Diagnosis (ICD Code) Assessment Notes Treatment Notes Treatment Clinical Notes Section Notes 08/26/2024 COPD (chronic obstructive pulmonary disease) (ICD-10 - J44.9) 09/09/2024 Pulmonary nodules/lesions, multiple (ICD-10 - R91.8) 09/09/2024 Dental infection (ICD-10 - K04.7) 08/26/2024 Protein-calorie malnutrition, unspecified severity (ICD-10 - E46) 10/19/2024 Pulmonary nodules/lesions, multiple (ICD-10 - R91.8) 10/19/2024 Internal derangement of left knee (ICD-10 - M23.92) LIKELY ACL TEAR. NO INTERVENTION AT THIS TIME OTHER THAN AVOIDING PIVOTING, SQUATTING, TRAUMA TO LEFT KNEE. 08/12/2024 COPD (chronic obstructive pulmonary disease) (ICD-10 - J44.9) 08/12/2024 Dental infection (ICD-10 - K04.7) 08/12/2024 Exposure to potential infection (ICD-10 - Z20.9) 08/12/2024 Colon cancer screening (ICD-10 - Z12.11) 08/12/2024 Protein-calorie malnutrition, unspecified severity (ICD-10 - E46) 10/19/2024 COPD (chronic obstructive pulmonary disease) (ICD-10 - J44.9) 09/09/2024 Insomnia (ICD-10 - G47.00) 08/26/2024 Dental infection (ICD-10 - K04.7) 08/26/2024 Colon cancer screening (ICD-10 - Z12.11) 10/19/2024 Protein-calorie malnutrition, unspecified severity (ICD-10 - E46) 08/12/2024 BMI less than 19,adult (ICD-10 - Z68.1) 08/12/2024 Fatigue (ICD-10 - R53.83) 08/12/2024 Dental infection (ICD-10 - K04.7) 08/12/2024 Nutritional counseling (ICD-10 - Z71.3) 10/19/2024 Nicotine dependence, unspecified, uncomplicated (ICD-10 - F17.200) 10/19/2024 Insomnia (ICD-10 - G47.00) 08/12/2024 Protein-calorie malnutrition, unspecified severity (ICD-10 - [...] Treatment Future Test Test Name Order Date CT Scan : Biopsy Lung 10/19/2024 Next Appt Details Provider Name:Edy Ramirez , 11/10/2024 08:40:00 AM, [address] [facility] [address], [place], [address], Insurance Providers Payer Name Payer Address Payer Phone Subscriber Number Group Number Insured Name Patient Relationship to Insured Coverage Start Date Coverage End Date [facility] [address] [address] [place] [address] [id number] Callum Bah Self - patient is the insured
--- OUTSIDE RECORDS SUMMARY | 2024-11-04 08:52 | XMS_ITS | Clinical Summary ---
Author Organization [facility] Address [address] [place] [address] Phone Care Team Providers Care Brim Presser Name Role Phone Nevaeh Moulton Primary Care Provider [phone] Allergies No known active allergies Medications ADVAIR [...] Comments Blood Pressure 110/54 04/06/2019 3:00 PM [facility] Pulse 82 04/06/2019 3:00 PM [facility] Temperature 36.8 C (98.2 F) 04/06/2019 3:00 PM [facility] Respiratory Rate 18 04/06/2019 3:00 PM [facility] Oxygen Saturation 90% 04/06/2019 7:33 AM [facility] Inhaled Oxygen Concentration - - Weight 58.5 kg (129 lb) 04/05/2019 11:00 AM [facility] bed scale Height 180.3 cm (5' 11) 04/04/2019 3:41 PM [facility] Body Mass Index 17.99 04/04/2019 3:41 PM [facility] Plan of Treatment Health Maintenance Due Date Last Done Comments Cologuard 09/30/2007 Colonoscopy 09/30/2007 Colorectal Cancer Screening 09/30/2007 Immunochemical Fecal Occult Blood 09/30/2007 Zoster Immunization (1 of 2) 2012 Pneumococcal Immunization (5 0+ years) (2 of 2 - PCV) 09/08/2014 09/08/2013 Respiratory Syncytial Virus (RSV) Immunization (Adult) (1 - Risk 60-74 years 1-dose series) 2022 SARS-COV-2 Immunization (4 - season) 2024 08/30/2021, 09/26/2020, 08/29/2020 Influenza Immunization (Seas on Ended) 2025 02/20/2017, 06/03/2016, 04/11/2015 Pneumococcal Immunization Combined Discontinued 09/08/2013 DTaP/Tdap/Td Immunization Discontinued 04/01/2017 TdaP Immunization Completed 04/01/2017 Hepatitis C Virus (HCV) Screening Completed 04/05/2019 Hepatitis B Immunization Aged Out No longer eligible based on patient's age to complete this topic Human Papillomavirus (HPV) Immunization Aged Out No longer eligible based on patient's age to complete this topic Meningococcal Immunization (ACWY) Aged Out No longer eligible based on patient's age to complete this topic Rotavirus Immunization Aged Out No lo nger eligible based on patient's age to complete this topic Procedures Procedure Name Priority Date/Time Associated Diagnosis Comments HEPATITIS PANEL ACUTE (AHP) STAT 04/05/2019 8:58 AM [facility] from Last 3 Months or Most Recently Relevant to Health Maintenance Results * Hepatitis Panel Acute (AHP) (04/05/2019 8:58 AM [facility]) HEPATITIS A IGM ANTIBODY NON DETECTED NON DETECTED 04/05/2019 3:14 PM [facility] Comment: IGM Antibodies to HAV not detected. Does not exclude early acute or recovered HAV infection. HEP B CORE AB (IGM) NON DETECTED NON DETECTED 04/05/2019 3:14 PM [facility] Comment:IGM anti-HBC not det ected. Does not exclude the possibility of exposure to or infection with HBV. HEPATITIS B SURFACE ANTIGEN NON DETECTED NON DETECTED 04/05/2019 3:14 PM [facility] Comment:A nonreactive test r esult does not [...] antibody 0.12 <1 S/CO 04/05/2019 3:14 PM [facility] Comment: Signal/Cutoff ratio < 0.79 is Nondetected Signal/Cutoff ratio 0.80-0.99 is Grayzone Signal/Cutoff ratio > 0.99 is Detected Supplemental assays are recommended if signal/cutoff ratio is >/=1.00. Signal/cutoff ratio result >/= 5.00 is 97% predictive of positivity for recombinant immunoblot assay (RIBA) and will be reported to the [place] Department of Public Health as required. Blood specimen (specimen) Venipuncture / Unknown 04/05/2019 8:58 AM [facility] 04/05/2019 9:00 AM [facility] us Jose Diaz MD HEMATOLOGY ORDERABLES Fin al Result [facility] [address] [place] [address], from Last 3 Months or Most Recently Relevant to Health Maintenance Insurance MEDICARE Advance Directives * Full Code (Latest Code Status on File) Date Activated Date Inactivated Comments 04/04/2019 7:49 PM 04/06/2019 5:57 PM CPR-Full T reatment: FULL ARREST: Attempt Resuscitation/CPR wit intubation and mechanical ventilation. PRE-ARREST: Use entire range of life support measures to stabilize the patient. Care Teams Brim Presser Relationship Specialty Start Date End Date Nevaeh Moulton PA [address] [address] PCP - General Adult Medicine 12/12/16
--- OUTSIDE RECORDS SUMMARY | 2024-11-04 08:52 | XMS_ITS | Referral Summary ---
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
--- OUTSIDE RECORDS SUMMARY | 2024-11-04 08:52 | XMS_ITS ---
Author Organization [facility] Address [address] [place] [address] Care Team Providers Care Research Biostatistician Name Role Phone Edy Ramirez Primary Care Provider [phone] REASON FOR VISIT lab Social History Sex Assigned At : Social History Observation Description Sex Assigned At Male Encounters Encounter Location Date Provider Diagnosis [facility] [address] [place] [address] 09/09/2024 Edy Ramirez Plan Of Treatment Next Appt Details Provider Name:Edy Ramirez , 11/10/2024 08:40:00 AM, [address] [place], [address], Progress Notes * Callum RETANADOB:1960 (64 yo M)Acc No.[id number]:09/09/2024 UNLOCKED PROGRESS NOTE Patient: Callum CESAR Provider: Naya Ramirez :1960 A ge:63 Y S ex:Male Date:09/09/2024 Address:[address] [facility], [place], [place] Subjective: * Chief Complaints: * 1 . Lab. * Medical History: Objective: * Vitals: Assessment: Plan: * Treatment: * * Electronic signature of Veda Ramirez , [id number] on 11/04/2024 at 08:52 AM CDT Sign off status: Pending * Provider: Naya Ramirez Date: 0 09/09/2024 Generated for Ted grier/Natalia/eTransmitting on: 0 11/04/2024 08:52 AM CDT
--- OUTSIDE RECORDS SUMMARY | 2024-11-04 08:52 | XMS_ITS | Patient Health Record ---
Author Organization [facility] Address [address] [facility] [address] [place], [place] [address] Care Team Providers Care [employer] Estates Paralegal Name Role Phone Edy Jeffries Primary Care Provider Orion Morales [phone] Reason For Referral No Information Plan Of Treatment No Information Insurance Providers Payer Name Payer Address Payer Phone Subscriber Number Group Number Insured Name Patient Relationship to Insured Coverage Start Date Coverage End Date Dinesh [facility] [address] [place] [address] [id number] Callum Bah Self - patient is the insured
--- NOTE | 2024-11-04 09:20 | SUR.PREOP ---
0920- Call to Dr. Lew to notify patient had sips of water at [address] Lew OK to proceed with procedure.
[2024-11-04 09:38] LABS: Mean Platelet Volume 9.7 fl (7.4-10.4); Platelet Count Result 259 k/mm3 (150-375)
[2024-11-04 09:49] LABS: Prothrombin Time 13.6 Seconds (11.1-14.7)
--- NOTE | 2024-11-04 15:10 | SUR.PHASEII ---
6132 Dr. Lew at bedside to see patient. Per MD patient can d/c at this time.
== END 2024-11-04 15:18 | disposition home or self-care (01) ==
PROVIDERS: PCP Internal Medicine; Referring Provider Internal Medicine; Visit Provider Radiology Diagnostic Radiology
PROC: BB24ZZZ Computerized Tomography (CT Scan) of Bilateral Lungs (ICD-10-PCS; CPT 32408; principal; 2024-11-04 11:00)
DX: R91.8 Other nonspecific abnormal finding of lung field (principal); J43.9 Emphysema, unspecified
CPT/HCPCS: 32408; 36415; 71045; 85049; 85610; 88305; 88312; 88342